=== PATIENT | male | born 2000 | race Caucasian/White ===

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

== ENCOUNTER 2018-10-06 06:56 | Inpatient (IN) | payer SELFPAY ==
[2018-10-06] MEDS ORDERED: NORMAL SALINE 1000 ML 1,000 ML IV ONE ×2 (07:03→08:06)
[2018-10-06] MEDS ORDERED: LORAZEPAM INJ 2 MG/1 ML VIAL IV ONE ×2 (07:03→08:06)
--- NOTE | 2018-10-06 07:13 | ER Document Report ---
ED General - General Chief Complaint: Overdose Stated Complaint: POSSIBLE OVERDOSE Time Seen by Provider: 10/06/18 07:02 TRAVEL OUTSIDE OF THE [place] IN LAST 30 DAYS: No - HPI Notes: Patient is a 18-year-old male that presents to the emergency department for chief complaint of methamphetamine abuse. Patient friends called EMS this morning after patient ingested methamphetamine. He told EMS that he swallowed it and it was a higher dose than he usually takes. Patient was complaining to EMS of having chest pain. HPI is limited because of patient's current mental status. He did receive 2 mg IV Ativan and 5 mg IV Versed and prior to presentation in the ER. EMS reports patient was picked up at a clean facility and they did not see any other drug paraphernalia or alcohol present. Past Medical History: Unknown Past Surgical History: Unknown Social History: Methamphetamine abuse Family History: Unknown Allergies: Penicillin and sulfa per EMS REVIEW OF SYSTEMS: Unable to obtain because of acuity of condition PHYSICAL EXAMINATION: Vital signs reviewed, nursing noted reviewed. GENERAL: Diaphoretic, highly agitated, tremulous HEAD: Atraumatic, normocephalic. EYES: Bilateral pupil dilatation, reactive and symmetric. Extraocular movements intact, sclera anicteric, conjunctiva are injected ENT: nares patent, oropharynx clear without exudates. Moist mucous membranes. NECK: Normal range of motion, supple without lymphadenopathy LUNGS: Breath sounds clear to auscultation bilaterally and equal. No wheezes rales or rhonchi. Tachypneic HEART: Tachycardic rate and regular rhythm without murmurs ABDOMEN: Soft, no apparent tenderness. No rebound, guarding, or rigidity. No masses appreciated. EXTREMITIES: No long bone deformity, good range of motion, no pitting or edema. NEUROLOGICAL: GCS 14. moves all extremities spontaneously Motor and sensory grossly intact on exam. PSYCH: Highly agitated, tremulous SKIN: Warm, diaphoretic, normal turgor, no rashes or lesions noted on exposed skin - Related Data Allergies/Adverse Reactions: Penicillins Allergy (Verified 07/04/17 10:32) Sulfa (Sulfonamide Antibiotics) Allergy (Verified 07/04/17 10:32) Past Medical History - Social History Smoking Status: Current Every Day Smoker Family History: None, Reviewed & Not Pertinent. denies: Arthritis, CAD, COPD, CVA, DM, Hyperlipidemia, Hypertension, Malignancy, Thyroid Disfunction Renal/ Medical History: Denies: Hx Peritoneal Dialysis Psychiatric Medical History: Reports: Hx Attention Deficit Hyperactivity Disorder, Hx Depression Traumatic Medical History: Reports: Hx Fractures - Tuft fracture left index finger - Immunizations Immunizations up to date: Yes Hx Diphtheria, Pertussis, Tetanus Vaccination: No Physical Exam - Vital signs Vitals: Resp Pulse Ox 39 H 95 10/06/18 07:01 10/06/18 07:01 Course - Re-evaluation Re-evalutation: 10/06/18 07:12 Vitals reviewed. Nursing notes reviewed. Patient presented by EMS highly agitated and diaphoretic. His presentation is consistent with a large ingestion of methamphetamine. Patient placed on telemetry monitoring. Current heart rate is 160. Patient will be given another dose of IV Ativan for his agitated state 10/06/18 08:06 Patient reevaluated. His father is currently at bedside. Father was the one that called EMS. He states patient has no other past medical or surgical histo ry. He believes that he only ingested methamphetamine. He states patient came in his room this morning and told him he ingested a large amount of methamphetamine and that his dad needed to call EMS. Patient tried to induce vomiting at home but was unsuccessful. Father states he has a history of drug abuse in the past but is not sure exactly what substances he has used. Patient is still very agitated and not answering questions. GCS 14. He will be given another dose of Ativan and a second liter bolus. 10/06/18 09:37 Patient reevaluated. He is less agitated but still very fidgety. Heart rate 148. Patient is still requiring restraints because of his level of agitation and pulling at medical equipment. Patient's family at bedside. His lab work is suggestive of early rhabdomyolysis. Patient will continue to receive IV fluids and will be admitted to the ICU for further management. Case discussed with admitting physician Dr. Baker Laboratory 10/06/18 10/06/18 10/06/18 07:20 07:20 07:20 WBC 18.9 H RBC 5.02 Hgb 15.8 Hct 45.6 MCV 91 MCH 31.4 MCHC 34.5 RDW 13.0 Plt Count 394 Seg Neutrophils % 85.8 H Lymphocytes % 5.5 L Monocytes % 8.3 Eosinophils % 0.1 Basophils % 0.3 Absolute Neutrophils 16.2 H Absolute Lymphocytes 1.0 Absolute Monocytes 1.6 H Absolute Eosinophils 0.0 Absolute Basophils 0.1 Sodium 149.4 H Potassium 5.0 Chloride 107 Carbon Dioxide 24 Anion Gap 18 BUN 17 Creatinine 1.30 H Est GFR ( Amer) > 60 Est GFR (Non-Af Amer) > 60 Glucose 98 Calcium 11.0 H Total Bilirubin 1.2 Direct Bilirubin 0.4 Neonat Total Bilirubin Not Reportable Neonat Direct Bilirubin Not Reportable Neonat Indirect Bili Not Reportable AST 56 ALT 42 Alkaline Phosphatase 99 Creatine Kinase 707 H Troponin I < 0.012 Total Protein 8.4 H Albumin 5.1 H Urine Color Urine Appearance Urine pH Ur Specific [place] Urine Protein Urine Glucose (UA) Urine Ketones Urine Blood Urine Nitrite Urine Bilirubin Urine Urobilinogen Ur Leukocyte Esterase Urine WBC (Auto) Urine RBC (Auto) U Hyaline Cast (Auto) Squamous Epi Cells Auto Urine Mucus (Auto) Urine Ascorbic Acid Salicylates < 1.0 L Urine Opiates Screen Urine Methadone Screen Acetaminophen < 10 L Ur Barbiturates Screen Ur Phencyclidine Scrn Ur Amphetamines Screen U Benzodiazepines Scrn Urine Cocaine Screen U Marijuana (THC) Screen Serum Alcohol < 10 10/06/18 10/06/18 08:35 08:35 WBC RBC Hgb Hct MCV MCH MCHC RDW Plt Count Seg Neutrophils % Lymphocytes % Monocytes % Eosinophils % Basophils % Absolute Neutrophils Absolute Lymphocytes Absolute Monocytes Absolute Eosinophils Absolute Basophils Sodium Potassium Chloride Carbon Dioxide Anion Gap BUN Creatinine Est GFR ( Amer) Est GFR (Non-Af Amer) Glucose Calcium Total Bilirubin Direct Bilirubin Neonat Total Bilirubin Neonat Direct Bilirubin Neonat Indirect Bili AST ALT Alkaline Phosphatase Creatine Kinase Troponin I Total Protein Albumin Urine Color KIMBERLY Urine Appearance SLIGHTLY-CLOUDY Urine pH 5.0 Ur Specific [place] 1.031 Urine Protein 100 H Urine Glucose (UA) NEGATIVE Urine Ketones TRACE H Urine Blood NEGATIVE Urine Nitrite NEGATIVE Urine Bilirubin NEGATIVE Urine Urobilinogen 2.0 H Ur Leukocyte Esterase NEGATIVE Urine WBC (Auto) 8 Urine RBC (Auto) 0 U Hyaline Cast (Auto) 15 Squamous Epi Cells Auto <1 Urine Mucus (Auto) MANY Urine Ascorbic Acid 40 H Salicylates Urine Opiates Screen NEGATIVE Urine Methadone Screen NEGATIVE Acetaminophen Ur Barbiturates Screen NEGATIVE Ur Phencyclidine Scrn NEGATIVE Ur Amphetamines Screen U Benzodiazepines Scrn UNCONFIRMED POSITIVE Urine Cocaine Screen NEGATIVE U Marijuana (THC) Screen UNCONFIRMED POSITIVE Serum Alcohol Chest X-Ray 10/06/18 07:08 IMPRESSION: LOW LUNG VOLUMES. NO SIGNIFICANT RADIOGRAPHIC FINDING IN THE CHEST. - Vital Signs Vital signs: Temp Pulse Resp BP Pulse Ox 100.4 F 35 H 157/98 H 94 10/06/18 08:37 10/06/18 08:34 10/06/18 08:34 10/06/18 08:02 - Laboratory Result Diagrams: 10/06/18 07:20 10/06/18 07:20 Laboratory results interpreted by me: 10/06/18 10/06/18 10/06/18 07:20 07:20 08:35 WBC 18.9 H Seg Neutrophils % 85.8 H Lymphocytes % 5.5 L Absolute Neutrophils 16.2 H Absolute Monocytes 1.6 H Sodium 149.4 H Creatinine 1.30 H Calcium 11.0 H Creatine Kinase 707 H Total Protein 8.4 H Albumin 5.1 H Urine Protein 100 H Urine Ketones TRACE H Urine Urobilinogen 2.0 H Urine Ascorbic Acid 40 H Salicylates < 1.0 L Acetaminophen < 10 L Critical Care Note - Critical Care Note Total time excluding time spent on procedures (mins): 35 Comments: critical care time 35 exclusive from separate billable procedures for a patient requiring complex medical decision making, and high potential for clinical deterioration. Time spent obtaining history from patient or surrogate, discussions with consultants, development of treatment plan with patient or surrogate, evaluation of patient's response to treatment, examination of patient, ordering and performing treatments and interventions, ordering and review of laboratory studies, re-evaluation of patient's condition, ordering and review of radiographic studies and review of old charts Discharge - Discharge Clinical Impression: Methamphetamine abuse, SANAM (acute kidney injury) Rhabdomyolysis Qualifiers: Rhabdomyolysis type: non-traumatic Qualified Code(s): M62.82 - Rhabdomyolysis Condition: Stable Disposition: ADMITTED INPATIENT Admitting Provider: Hospitalist Unit Admitted: ICU
[2018-10-06 07:50] LABS: ABSOLUTE BASOPHILS # (AUTO) 0.1 10^3/uL (0.0-0.2); ABSOLUTE MONOCYTES (AUTO) 1.6 10^3/uL (0.1-1.4); ABSOLUTE NEUT (AUTO) 16.2 10^3/uL (1.7-8.2); BASOPHILS % (AUTO) 0.3 % (0-2); EOSINOPHILS % (AUTO) 0.1 % (0-6); HEMATOCRIT 45.6 % (37.9-51.0); HEMOGLOBIN 15.8 g/dL (13.5-17.0); LYMPHOCYTES % (AUTO) 5.5 % (13-45); MEAN CORPUSCULAR HEMOGLOBIN 31.4 pg (27.0-33.4); MEAN CORPUSCULAR HGB CONC 34.5 g/dL (32.0-36.0); MEAN CORPUSCULAR VOLUME 91 fl (80-97); MONOCYTES % (AUTO) 8.3 % (3-13); PLATELET COUNT 394 10^3/uL (150-450); RED BLOOD COUNT 5.02 10^6/uL (4.35-5.55); SEGMENTED NEUTROPHILS % (AUTO) 85.8 % (42-78); TOTAL CELLS COUNTED % (AUTO) 100 %; WHITE BLOOD COUNT 18.9 10^3/uL (4.0-10.5)
[2018-10-06 08:05] LABS: ALANINE AMINOTRANSFERASE 42 U/L (21-72); ALBUMIN 5.1 g/dL (3.5-5.0); ALKALINE PHOSPHATASE 99 U/L (38-126); ANION GAP 18 (5-19); ASPARTATE AMINO TRANSFERASE 56 U/L (17-59); BILIRUBIN,DIRECT 0.4 mg/dL (0.0-0.4); BILIRUBIN,TOTAL 1.2 mg/dL (0.2-1.3); BLOOD UREA NITROGEN 17 mg/dL (7-20); CARBON DIOXIDE 24 mmol/L (22-30); CHLORIDE 107 mmol/L (98-107); CREATINE KINASE 707 U/L (55-170); GLUCOSE 98 mg/dL (75-110); SODIUM 149.4 mmol/L (137-145); TOTAL PROTEIN 8.4 g/dL (6.3-8.2)
[2018-10-06 08:07] LABS: ACETAMINOPHEN < 10 ug/mL (10-30); ALCOHOL < 10 mg/dL (NONE DETECTED); SALICYLATE < 1.0 mg/dL (2.0-20.0)
--- NOTE | 2018-10-06 08:59 | RADIOLOGY REPORT (SQ) ---
EXAM DESCRIPTION: CHEST SINGLE VIEW COMPLETED DATE/TIME: 10/06/2018 8:52 am REASON FOR STUDY: chest pain COMPARISON: None. NUMBER OF VIEWS: One view. TECHNIQUE: Single frontal radiographic view of the chest acquired. LIMITATIONS: None. FINDINGS: LUNGS AND PLEURA: Low lung volumes. No opacities, masses or pneumothorax. No pleural eff usion. MEDIASTINUM AND HILAR STRUCTURES: No masses. No contour abnormality. HEART AND VASCULAR STRUCTURES: Normal size. No evidence for failure. BONES: No acute findings. HARDWARE: None in the chest. OTHER: No other significant finding. IMPRESSION: LOW LUNG VOLUMES. NO SIGNIFICANT RADIOGRAPHIC FINDING IN THE CHEST. TECHNICAL DOCUMENTATION: JOB ID: [id number] [employer]- All Rights Reserved Reading location - IP/workstation name: [email or web address]
[2018-10-06 09:11] LABS: APPEARANCE,URINE SLIGHTLY-CLOUDY; BILIRUBIN,URINE NEGATIVE (NEGATIVE); COLOR,URINE AMBER; GLUCOSE, URINE NEGATIVE (NEGATIVE); KETONES,URINE TRACE mg/dL (NEGATIVE); LEUKOCYTE ESTERASE,URINE NEGATIVE (NEGATIVE); NITRITE,URINE NEGATIVE (NEGATIVE); PROTEIN,URINE 100 mg/dL (NEGATIVE); URINE SPECIFIC GRAVITY 1.031
[2018-10-06 09:15] LABS: URINE BARBITURATES SCREEN NEGATIVE; URINE BENZODIAZEPINES SCREEN UNCONFIRMED POSITIVE; URINE COCAINE SCREEN NEGATIVE; URINE MARIJUANA (THC) SCREEN UNCONFIRMED POSITIVE; URINE METHADONE SCREEN NEGATIVE; URINE PHENCYCLIDINE SCREEN NEGATIVE
[2018-10-06] MEDS: NORMAL SALINE 1000 ML 1,000 ML IV PRN ×2 (11:58→22:23)
[2018-10-06] MEDS: HALOPERIDOL LACTATE INJ 5 MG/1 ML VIAL IV PRN (11:58)
--- NOTE | 2018-10-06 15:21 | PDOC H&P ---
History of Present Illness Admission Date/PCP: 10/06/18 09:48 Patient complains of: Methadone overdose per patient's father History of Present Illness: CLAUDE KRAUS is a 18 year old male history of substance abuse, presented to the emergency department apparently after taking too much methamphetamine. Further cystoscopy at bedside. Father states patient ran into his room this morning and asked him to call 911, that he used methamphetamine than he normally use. Patient was brought in by EMS. In the ED patient was agitated and treated with 2 mg IV Ativan and 5 mg IV Versed. He required restraints. Initial evaluation significant for leukocytosis with WBC 18.9, mild hyponatremia, creatinine 1.3, and CK 7.7. Patient referred for admission. When I saw patient, he was in restraint with intermittent restlessness. He was talking incoherently. History obtained from talking with family members and review of medical records. Past Medical History Psychiatric Medical History: Reports: Attention Deficit Hyperactivity Disorder, Depression Social History Smoking Status: Current Every Day Smoker - Advance Directive Resuscitation Status: Full Code Family History Family History: None, Reviewed & Not Pertinent. denies: Arthritis, CAD, COPD, CVA, DM, Hyperlipidemia, Hypertension, Malignancy, Thyroid Disfunction Parental Family History Reviewed: Yes Children Family History Reviewed: Yes Sibling(s) Family History Reviewed.: Yes Medication/Allergy Home Medications: No Home Medications 10/06/18 Allergies/Adverse Reactions: Penicillins Allergy (Verified 07/04/17 10:32) Sulfa (Sulfonamide Antibiotics) Allergy (Verified 07/04/17 10:32) Review of Systems Review of Systems: Unable to obtain due to altered mental status. Physical Exam Vital Signs: Temp Pulse Resp BP Pulse Ox 100.4 F 149 H 32 H 143/90 H 96 10/06/18 08:37 10/06/18 09:50 10/06/18 10:02 10/06/18 10:02 10/06/18 10:02 Intake & Output 10/05/18 10/06/18 10/07/18 06:59 06:59 06:59 Intake Total 1999 Balance 1999 Weight 70.307 kg GENERAL: Well-developed, well-nourished, with intermittent agitation/restlessness HEENT: Normocephalic/atraumatic NECK supple, no JVD CARDIOVASCULAR: Tachycardic, normal S1-S2, no appreciable murmur LUNGS: CTA bilaterally ABDOMEN: Soft, NT, NL bowel sounds EXTREMITIES: No edema, clubbing, cyanosis NEUROLOGICAL: Awake, currently in restraint, confused/disoriented, not following commands Results Laboratory Results: 10/06/18 07:20 10/06/18 07:20 10/06/18 10/06/18 10/06/18 07:20 07:20 08:35 WBC 18.9 H RBC 5.02 Hgb 15.8 Hct 45.6 MCV 91 MCH 31.4 MCHC 34.5 RDW 13.0 Plt Count 394 Seg Neutrophils % 85.8 H Lymphocytes % 5.5 L Monocytes % 8.3 Eosinophils % 0.1 Basophils % 0.3 Absolute Neutrophils 16.2 H Absolute Lymphocytes 1.0 Absolute Monocytes 1.6 H Absolute Eosinophils 0.0 Absolute Basophils 0.1 Sodium 149.4 H Potassium 5.0 Chloride 107 Carbon Dioxide 24 Anion Gap 18 BUN 17 Creatinine 1.30 H Est GFR ( Amer) > 60 Est GFR (Non-Af Amer) > 60 Glucose 98 Calcium 11.0 H Total Bilirubin 1.2 AST 56 ALT 42 Alkaline Phosphatase 99 Total Protein 8.4 H Albumin 5.1 H Urine Color KIMBERLY Urine Appearance SLIGHTLY-CLOUDY Urine pH 5.0 Ur Specific [place] 1.031 Urine Protein 100 H Urine Glucose (UA) NEGATIVE Urine Ketones TRACE H Urine Blood NEGATIVE Urine Nitrite NEGATIVE Ur Leukocyte Esterase NEGATIVE Urine WBC (Auto) 8 Urine RBC (Auto) 0 10/06/18 10/06/18 07:20 07:20 Creatine Kinase 707 H Troponin I < 0.012 Impressions: Chest X-Ray 10/06/18 07:08 IMPRESSION: LOW LUNG VOLUMES. NO SIGNIFICANT RADIOGRAPHIC FINDING IN THE CHEST. Assessment and Plan - Diagnosis (1) Rhabdomyolysis Qualifiers: Rhabdomyolysis type: non-traumatic Qualified Code(s): M62.82 - Rhabdomyolysis Is this a current diagnosis for this admission?: Yes (2) Methamphetamine abuse Is this a current diagnosis for this admission?: Yes (3) SANAM (acute kidney injury) Is this a current diagnosis for this admission?: Yes (4) Polysubstance abuse Is this a current diagnosis for this admission?: Yes (5) Nicotine addiction Is this a current diagnosis for this admission?: Yes - Plan Summary Plan Summary: Will admit patient to intensive care unit. He has received 2 L bolus IV fluids in the ED, will continue to treat with an acceptable 125 ml/h. We will treat with Haldol 4 mg every 6 as needed, continue restraints for now. Father reports that the patient possibly abuse alcohol and other substances. States he just got released from incarceration a few weeks ago. We will also treat him with Ativan 2 mg IV every 4 hours as needed. Suspect leukocytosis is reactive. We will monitor for apparent infection. Follow-up CBC Chem-7, CK, troponin.
[2018-10-06 15:39] LABS: ANION GAP 11 (5-19); BLOOD UREA NITROGEN 12 mg/dL (7-20); CALCIUM 9.7 mg/dL (8.4-10.2); CARBON DIOXIDE 22 mmol/L (22-30); CHLORIDE 108 mmol/L (98-107); GLUCOSE 90 mg/dL (75-110); POTASSIUM 4.7 mmol/L (3.6-5.0); SODIUM 140.8 mmol/L (137-145)
[2018-10-06 15:51] LABS: CREATINE KINASE MB 36.3 ng/mL (<4.55); TROPONIN I 0.023 ng/mL
[2018-10-06 15:58] LABS: CREATINE KINASE 9716 U/L (55-170)
[2018-10-06] MEDS: LORAZEPAM INJ 2 MG/1 ML VIAL IV PRN (22:23)
--- NOTE | 2018-10-07 00:19 | EKG REPORT ---
SEVERITY:- OTHERWISE NORMAL ECG - SINUS TACHYCARDIA : Confirmed by: Drew Chapman 07-Oct-2018 00:18:51
[2018-10-07 08:29] LABS: ABSOLUTE BASOPHILS # (AUTO) 0.1 10^3/uL (0.0-0.2); ABSOLUTE LYMPHOCYTES (AUTO) 1.4 10^3/uL (0.5-4.7); ABSOLUTE MONOCYTES (AUTO) 1.1 10^3/uL (0.1-1.4); ABSOLUTE NEUT (AUTO) 8.2 10^3/uL (1.7-8.2); BASOPHILS % (AUTO) 0.8 % (0-2); EOSINOPHILS % (AUTO) 0.3 % (0-6); HEMATOCRIT 39.8 % (37.9-51.0); LYMPHOCYTES % (AUTO) 13.2 % (13-45); MEAN CORPUSCULAR HEMOGLOBIN 31.8 pg (27.0-33.4); MEAN CORPUSCULAR HGB CONC 35.3 g/dL (32.0-36.0); MEAN CORPUSCULAR VOLUME 90 fl (80-97); MONOCYTES % (AUTO) 10.5 % (3-13); PLATELET COUNT 259 10^3/uL (150-450); RED BLOOD COUNT 4.42 10^6/uL (4.35-5.55); SEGMENTED NEUTROPHILS % (AUTO) 75.2 % (42-78); TOTAL CELLS COUNTED % (AUTO) 100 %; WHITE BLOOD COUNT 10.9 10^3/uL (4.0-10.5)
[2018-10-07 08:48] LABS: ANION GAP 10 (5-19); BLOOD UREA NITROGEN 10 mg/dL (7-20); CALCIUM 9.8 mg/dL (8.4-10.2); CARBON DIOXIDE 25 mmol/L (22-30); CHLORIDE 102 mmol/L (98-107); GLUCOSE 72 mg/dL (75-110); POTASSIUM 4.5 mmol/L (3.6-5.0); SODIUM 136.5 mmol/L (137-145)
[2018-10-07 09:17] LABS: CREATINE KINASE 12136 U/L (55-170)
[2018-10-07] MEDS: NORMAL SALINE 1000 ML 1,000 ML IV PRN ×2 (10:17→18:19)
[2018-10-07] MEDS: NICOTINE 21 MG/24 HR PATCH.TD24 TD SCH (10:22)
[2018-10-07] MEDS: LORAZEPAM INJ 2 MG/1 ML VIAL IV PRN (17:35)
--- NOTE | 2018-10-07 19:23 | PDOC PROGRESS REPORT ---
Subjective Progress Note for:: 10/07/18 Subjective:: Patient is awake, reports doing much better. No chest pain or shortness of breath. Denies taking other substances other than methamphetamine this time, although noted is that urine drug screen was positive for marijuana. Urine drug screen also positive for benzodiazepine, but it is possible that the urine was collected after he had been treated with benzodiazepine in the ED for agitation. Reason For Visit: METHAMPHETAMINE OVERDOSE Physical Exam Vital Signs: Temp Pulse Resp BP Pulse Ox 98.5 F 87 26 H 153/94 H 99 10/07/18 16:00 10/07/18 16:00 10/07/18 16:00 10/07/18 16:00 10/07/18 16:00 Intake & Output 10/06/18 10/07/18 10/08/18 06:59 06:59 06:59 Intake Total 4300 Output Total 1125 550 Balance 3175 -550 Weight 75.3 kg 75.3 kg GENERAL: Well-developed, no acute distress HEENT: Normocephalic/atraumatic NECK supple, no JVD CARDIOVASCULAR: RRR, normal S1-S2 LUNGS: CTA bilaterally ABDOMEN: Soft, NT, NL bowel sounds EXTREMITIES: No edema, clubbing, cyanosis, no tenderness NEUROLOGICAL: Alert, oriented x 3, no focal weakness Results Laboratory Results: 10/07/18 08:21 10/07/18 08:21 10/07/18 10/07/18 08:21 08:21 WBC 10.9 H RBC 4.42 Hgb 14.0 Hct 39.8 MCV 90 MCH 31.8 MCHC 35.3 RDW 13.0 Plt Count 259 Seg Neutrophils % 75.2 Lymphocytes % 13.2 Monocytes % 10.5 Eosinophils % 0.3 Basophils % 0.8 Absolute Neutrophils 8.2 Absolute Lymphocytes 1.4 Absolute Monocytes 1.1 Absolute Eosinophils 0.0 Absolute Basophils 0.1 Sodium 136.5 L Potassium 4.5 Chloride 102 Carbon Dioxide 25 Anion Gap 10 BUN 10 Creatinine 0.79 Est GFR ( Amer) > 60 Est GFR (Non-Af Amer) > 60 Glucose 72 L Calcium 9.8 10/06/18 10/06/18 10/06/18 07:20 07:20 15:10 Creatine Kinase 707 H 9716 H CK-MB (CK-2) Troponin I < 0.012 10/06/18 10/07/18 15:10 08:21 Creatine Kinase 93540 H CK-MB (CK-2) 36.30 H Troponin I 0.023 Impressions: Chest X-Ray 10/06/18 07:08 IMPRESSION: LOW LUNG VOLUMES. NO SIGNIFICANT RADIOGRAPHIC FINDING IN THE CHEST. Assessment and Plan - Diagnosis (1) Rhabdomyolysis Qualifiers: Rhabdomyolysis type: non-traumatic Qualified Code(s): M62.82 - Rhabdomyolysis Is this a current diagnosis for this admission?: Yes (2) Methamphetamine abuse Is this a current diagnosis for this admission?: Yes (3) SANAM (acute kidney injury) Is this a current diagnosis for this admission?: Yes (4) Polysubstance abuse Is this a current diagnosis for this admission?: Yes (5) Nicotine addiction Is this a current diagnosis for this admission?: Yes - Plan Summary Plan Summary: Patient with worsening CPK level today, now 12,000 from 9000 yesterday evening. Will increase IV fluid to 150 mm/h for now. We will continue to follow CPK level. We will continue to monitor in the ED for now, although mental status has markedly improved. He is n.p.o. has been discontinued and he has been advanced to regular diet. Leukocytosis has improved. Suspect this was reactive. Continue to monitor labs, including Chem-7 and CPK. Patient strongly advised to consider going to drug rehab. We will continue nicotine patch for now.
[2018-10-07] MEDS: HALOPERIDOL LACTATE INJ 5 MG/1 ML VIAL IV PRN (20:03)
[2018-10-08] MEDS: NORMAL SALINE 1000 ML 1,000 ML IV PRN ×3 (02:15→19:35)
[2018-10-08 04:02] LABS: ABSOLUTE BASOPHILS # (AUTO) 0.1 10^3/uL (0.0-0.2); ABSOLUTE EOSINOPHILS # (AUTO) 0.2 10^3/uL (0.0-0.6); ABSOLUTE NEUT (AUTO) 5.2 10^3/uL (1.7-8.2); BASOPHILS % (AUTO) 0.9 % (0-2); EOSINOPHILS % (AUTO) 2.8 % (0-6); HEMOGLOBIN 14.5 g/dL (13.5-17.0); LYMPHOCYTES % (AUTO) 23.7 % (13-45); MEAN CORPUSCULAR HEMOGLOBIN 31.6 pg (27.0-33.4); MEAN CORPUSCULAR HGB CONC 35.3 g/dL (32.0-36.0); MEAN CORPUSCULAR VOLUME 90 fl (80-97); MONOCYTES % (AUTO) 11.7 % (3-13); PLATELET COUNT 255 10^3/uL (150-450); RED BLOOD COUNT 4.58 10^6/uL (4.35-5.55); RED CELL DISTRIBUTION WIDTH 13.2 % (11.5-14.0); SEGMENTED NEUTROPHILS % (AUTO) 60.9 % (42-78); TOTAL CELLS COUNTED % (AUTO) 100 %; WHITE BLOOD COUNT 8.5 10^3/uL (4.0-10.5)
[2018-10-08 04:26] LABS: ANION GAP 9 (5-19); BLOOD UREA NITROGEN 9 mg/dL (7-20); CALCIUM 9.5 mg/dL (8.4-10.2); CARBON DIOXIDE 25 mmol/L (22-30); CHLORIDE 103 mmol/L (98-107); GLUCOSE 121 mg/dL (75-110); POTASSIUM 3.8 mmol/L (3.6-5.0)
[2018-10-08 04:52] LABS: CREATINE KINASE 6046 U/L (55-170)
[2018-10-08] MEDS: NICOTINE 21 MG/24 HR PATCH.TD24 TD SCH (10:54)
--- NOTE | 2018-10-08 14:09 | PDOC PROGRESS REPORT ---
Subjective Progress Note for:: 10/08/18 Subjective:: Patient seen and examined at bedside. He is awake alert oriented. He is not in pain or distress. Many years old male patient admitted after he overdosed himself with methamphetamine. At presentation patient was altered mental and his blood work shows rhabdomyolysis and acute kidney injury. Acute kidney injury has subsided and rhabdomyolysis improving. Still his CPK is 6000. Reason For Visit: METHAMPHETAMINE OVERDOSE Physical Exam Vital Signs: Temp Pulse Resp BP Pulse Ox 98.4 F 100 14 145/98 H 100 10/08/18 13:03 10/08/18 13:03 10/08/18 13:03 10/08/18 13:03 10/08/18 13:03 Intake & Output 10/07/18 10/08/18 10/09/18 06:59 06:59 06:59 Intake Total 4300 1992 1240 Output Total 1125 3000 301 Balance 3175 -1008 939 Weight 75.3 kg 75.3 kg General appearance: PRESENT: no acute distress Head exam: PRESENT: atraumatic Eye exam: PRESENT: conjunctiva pink Mouth exam: PRESENT: moist Neck exam: ABSENT: carotid bruit, JVD, lymphadenopathy, thyromegaly Respiratory exam: PRESENT: clear to auscultation migel. ABSENT: rales, rhonchi, wheezes Cardiovascular exam: PRESENT: RRR. ABSENT: diastolic murmur, rubs, systolic murmur GI/Abdominal exam: PRESENT: normal bowel sounds, soft. ABSENT: distended, guarding, mass, organolmegaly, rebound, tenderness Neurological exam: PRESENT: alert, awake, oriented to time, oriented to situation Results Laboratory Results: 10/08/18 03:55 10/08/18 03:55 10/08/18 10/08/18 03:55 03:55 WBC 8.5 RBC 4.58 Hgb 14.5 Hct 41.0 MCV 90 MCH 31.6 MCHC 35.3 RDW 13.2 Plt Count 255 Seg Neutrophils % 60.9 Lymphocytes % 23.7 Monocytes % 11.7 Eosinophils % 2.8 Basophils % 0.9 Absolute Neutrophils 5.2 Absolute Lymphocytes 2.0 Absolute Monocytes 1.0 Absolute Eosinophils 0.2 Absolute Basophils 0.1 Sodium 137.0 Potassium 3.8 Chloride 103 Carbon Dioxide 25 Anion Gap 9 BUN 9 Creatinine 0.67 Est GFR ( Amer) > 60 Est GFR (Non-Af Amer) > 60 Glucose 121 H Calcium 9.5 10/06/18 10/06/18 10/06/18 07:20 07:20 15:10 Creatine Kinase 707 H 9716 H CK-MB (CK-2) Troponin I < 0.012 10/06/18 10/07/18 10/08/18 15:10 08:21 03:55 Creatine Kinase 53461 H 6046 H CK-MB (CK-2) 36.30 H Troponin I 0.023 Impressions: Chest X-Ray 10/06/18 07:08 IMPRESSION: LOW LUNG VOLUMES. NO SIGNIFICANT RADIOGRAPHIC FINDING IN THE CHEST. Assessment and Plan - Diagnosis (1) Acute encephalopathy Is this a current diagnosis for this admission?: Yes Plan: Due to #2. Has resolved. (2) Methamphetamine overdose Is this a current diagnosis for this admission?: Yes Plan: Currently patient is awake alert and oriented. Patient counseled and encouraged to remain clean. (3) Acute kidney injury Is this a current diagnosis for this admission?: Yes Plan: Has resolved. (4) Polysubstance abuse Is this a current diagnosis for this admission?: Yes Plan: Patient counseled and encouraged to quit illicit drug use. (5) Rhabdomyolysis Qualifiers: Rhabdomyolysis type: non-traumatic Qualified Code(s): M62.82 - Rhabdomyolysis Is this a current diagnosis for this admission?: Yes Plan: Resolving.
[2018-10-09] MEDS: NORMAL SALINE 1000 ML 1,000 ML IV PRN ×2 (00:28→05:08)
[2018-10-09 06:41] LABS: ANION GAP 7 (5-19); BLOOD UREA NITROGEN 5 mg/dL (7-20); CALCIUM 9.7 mg/dL (8.4-10.2); CARBON DIOXIDE 25 mmol/L (22-30); CHLORIDE 105 mmol/L (98-107); GLUCOSE 99 mg/dL (75-110); POTASSIUM 4.2 mmol/L (3.6-5.0)
[2018-10-09 06:56] LABS: CREATINE KINASE 2427 U/L (55-170)
[2018-10-09] MEDS: NICOTINE 21 MG/24 HR PATCH.TD24 TD SCH (09:02)
[2018-10-09 12:42] VITALS: BP 135/78
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
== END 2018-10-09 14:28 | disposition home or self-care (01) | DRG 917 ==
LOC: ER 06:56 → EH 09:48 → ICU 16:48 → 3N 10-08 13:14
PROVIDERS: ADMIT Internal Medicine; ATTEND Internal Medicine
PROC: 3E0234Z Introduction of Serum, Toxoid and Vaccine into Muscle, Percutaneous Approach (ICD-10-PCS; principal; 2018-10-09)
DX: T43.621A Poisoning by amphetamines, accidental (unintentional), initial encounter (principal); G92 Toxic encephalopathy; E87.1 Hypo-osmolality and hyponatremia; M62.82 Rhabdomyolysis; N17.9 Acute kidney failure, unspecified; R41.82 Altered mental status, unspecified; F15.10 Other stimulant abuse, uncomplicated; F17.210 Nicotine dependence, cigarettes, uncomplicated; F90.9 Attention-deficit hyperactivity disorder, unspecified type; Y92.018 Other place in single-family (private) house as the place of occurrence of the external cause; Z23 Encounter for immunization
CPT/HCPCS: 36415; 71045; 80048; 80053; 80307; 81001; 82550; 82553; 84484; 85025; 90686; 93005; 93010; 96361; 96374; 96376; 99291; G0480; J1630; J2060; J3490; J7030

== ENCOUNTER 2019-01-07 08:12 | Emergency (ER) | payer MEDICAID, OTHER ==
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
[2019-01-07] MEDS ORDERED: CLINDAMYCIN HCL 150 MG CAPSULE PO ONE (09:28)
[2019-01-07 09:54] LABS: ABSOLUTE EOSINOPHILS # (AUTO) 0.1 10^3/uL (0.0-0.6); ABSOLUTE LYMPHOCYTES (AUTO) 1.8 10^3/uL (0.5-4.7); ABSOLUTE MONOCYTES (AUTO) 1.2 10^3/uL (0.1-1.4); ABSOLUTE NEUT (AUTO) 7.9 10^3/uL (1.7-8.2); BASOPHILS % (AUTO) 0.4 % (0-2); EOSINOPHILS % (AUTO) 1.2 % (0-6); HEMATOCRIT 46.7 % (37.9-51.0); HEMOGLOBIN 16.4 g/dL (13.5-17.0); LYMPHOCYTES % (AUTO) 15.9 % (13-45); MEAN CORPUSCULAR HEMOGLOBIN 31.7 pg (27.0-33.4); MEAN CORPUSCULAR HGB CONC 35.1 g/dL (32.0-36.0); MEAN CORPUSCULAR VOLUME 90 fl (80-97); MONOCYTES % (AUTO) 11.3 % (3-13); PLATELET COUNT 338 10^3/uL (150-450); RED BLOOD COUNT 5.17 10^6/uL (4.35-5.55); RED CELL DISTRIBUTION WIDTH 13.5 % (11.5-14.0); SEGMENTED NEUTROPHILS % (AUTO) 71.2 % (42-78); TOTAL CELLS COUNTED % (AUTO) 100 %
[2019-01-07 10:13] LABS: ALANINE AMINOTRANSFERASE 34 U/L (21-72); ALBUMIN 4.8 g/dL (3.5-5.0); ALKALINE PHOSPHATASE 135 U/L (38-126); ANION GAP 9 (5-19); ASPARTATE AMINO TRANSFERASE 44 U/L (17-59); BILIRUBIN,DIRECT 0.2 mg/dL (0.0-0.4); BLOOD UREA NITROGEN 13 mg/dL (7-20); CALCIUM 10.6 mg/dL (8.4-10.2); CARBON DIOXIDE 29 mmol/L (22-30); CHLORIDE 102 mmol/L (98-107); GLUCOSE 96 mg/dL (75-110); POTASSIUM 4.6 mmol/L (3.6-5.0); SODIUM 139.6 mmol/L (137-145); TOTAL PROTEIN 8.1 g/dL (6.3-8.2)
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
[2019-01-07 10:55] VITALS: BP 118/78
== END 2019-01-07 10:56 | disposition home or self-care (01) ==
LOC: ER 08:12
DX: L03.113 Cellulitis of right upper limb (principal); S60.221A Contusion of right hand, initial encounter; M79.641 Pain in right hand; F17.200 Nicotine dependence, unspecified, uncomplicated
CPT/HCPCS: 99283; 36415; 85025; 80053; 73130; J3490

== ENCOUNTER 2019-11-19 22:46 | Emergency (ER) | payer SELFPAY ==
[2019-11-19] MEDS: ACETAMINOPHEN 325 MG TABLET PO ONE ×2 (23:09→23:15)
[2019-11-19] MEDS ORDERED: NORMAL SALINE 1000 ML 1,000 ML IV ONE (23:40)
[2019-11-19] MEDS ORDERED: LORAZEPAM INJ 2 MG/1 ML VIAL IV ONE (23:43)
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
[2019-11-20 00:13] LABS: ABSOLUTE BASOPHILS # (AUTO) 0.1 10^3/uL (0.0-0.2); ABSOLUTE LYMPHOCYTES (AUTO) 1.9 10^3/uL (0.5-4.7); ABSOLUTE MONOCYTES (AUTO) 0.9 10^3/uL (0.1-1.4); ABSOLUTE NEUT (AUTO) 12.7 10^3/uL (1.7-8.2); EOSINOPHILS % (AUTO) 0.1 % (0-6); HEMATOCRIT 44.4 % (37.9-51.0); HEMOGLOBIN 15.8 g/dL (13.5-17.0); LYMPHOCYTES % (AUTO) 11.9 % (13-45); MEAN CORPUSCULAR HEMOGLOBIN 32.7 pg (27.0-33.4); MEAN CORPUSCULAR HGB CONC 35.6 g/dL (32.0-36.0); MEAN CORPUSCULAR VOLUME 92 fl (80-97); MONOCYTES % (AUTO) 5.5 % (3-13); PLATELET COUNT 379 10^3/uL (150-450); RED BLOOD COUNT 4.83 10^6/uL (4.35-5.55); RED CELL DISTRIBUTION WIDTH 12.7 % (11.5-14.0); SEGMENTED NEUTROPHILS % (AUTO) 81.5 % (42-78); TOTAL CELLS COUNTED % (AUTO) 100 %; WHITE BLOOD COUNT 15.6 10^3/uL (4.0-10.5)
[2019-11-20 00:35] LABS: ALBUMIN 4.8 g/dL (3.5-5.0); ALKALINE PHOSPHATASE 104 U/L (38-126); ANION GAP 10 (5-19); ASPARTATE AMINO TRANSFERASE 35 U/L (17-59); BILIRUBIN,TOTAL 0.3 mg/dL (0.2-1.3); BLOOD UREA NITROGEN 10 mg/dL (7-20); CALCIUM 9.9 mg/dL (8.4-10.2); CARBON DIOXIDE 24 mmol/L (22-30); CHLORIDE 104 mmol/L (98-107); GLUCOSE 102 mg/dL (75-110); POTASSIUM 4.3 mmol/L (3.6-5.0); TOTAL PROTEIN 7.9 g/dL (6.3-8.2)
[2019-11-20 00:44] LABS: APPEARANCE,URINE CLEAR; BILIRUBIN,URINE NEGATIVE (NEGATIVE); COLOR,URINE YELLOW; GLUCOSE, URINE NEGATIVE (NEGATIVE); KETONES,URINE NEGATIVE (NEGATIVE); LEUKOCYTE ESTERASE,URINE NEGATIVE (NEGATIVE); NITRITE,URINE NEGATIVE (NEGATIVE); PROTEIN,URINE NEGATIVE (NEGATIVE); URINE SPECIFIC GRAVITY 1.023; UROBILINOGEN,URINE NEGATIVE mg/dL (<2.0)
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
[2019-11-20] MEDS ORDERED: LORAZEPAM INJ 2 MG/1 ML VIAL IV ONE (01:36)
[2019-11-20] MEDS ORDERED: NORMAL SALINE 1000 ML 1,000 ML IV ONE (01:44)
[2019-11-20] MEDS ORDERED: HALOPERIDOL LACTATE INJ 5 MG/1 ML VIAL IM ONE (03:18)
[2019-11-20] MEDS ORDERED: DIPHENHYDRAMINE HCL 50 MG/ML VIAL IV ONE (03:18)
[2019-11-20 10:30] VITALS: BP 141/90
== END 2019-11-20 10:35 | disposition home or self-care (01) ==
LOC: ER 22:46
DX: S02.2XXA Fracture of nasal bones, initial encounter for closed fracture (principal); S02.5XXA Fracture of tooth (traumatic), initial encounter for closed fracture; S00.83XA Contusion of other part of head, initial encounter; S20.221A Contusion of right back wall of thorax, initial encounter; F15.10 Other stimulant abuse, uncomplicated; Y04.2XXA Assault by strike against or bumped into by another person, initial encounter; F17.200 Nicotine dependence, unspecified, uncomplicated; Z88.2 Allergy status to sulfonamides; Z88.0 Allergy status to penicillin; Z72.89 Other problems related to lifestyle
CPT/HCPCS: 99284; 96361; 96374; 96375; 36415; 85025; 80053; 81001; 70450; 71260; 72125; 74177; J1200; J1630; J2060; J7030